=== PATIENT | female | born 1990 | race Caucasian/White ===

== ENCOUNTER 2020-06-19 09:20 | Inpatient (IN) | payer MEDICAID, OTHER ==
[2020-06-19] VITALS (43 sets, daily range): BP systolic 108–171; BP diastolic 56–93
[~2020-06-19] VITALS: Ht 167.7 cm; Wt 127.4 kg
--- NOTE | 2020-06-19 09:10 | NUR ---
CORNELIUS JONES presented to unit via AMBULATORY from OFFICE, with c/o [facility] DIALATION. CORNELIUS JONES weighed, gowned, voided, and to bed. EFHM and TOCO applied, VS taken. CORNELIUS JONES oriented to bed controls, call light, TV, heat, and A/C controls.
[~2020-06-19 09:20] MED LIST: ACHYD1T PO; AZIT500T2 PO; CITA40TA19 PO; IBP800T PO; NITR100C3 PO; OMEP-10 PO; ONDAN4ODT PO; PREN1TAB39 PO
[2020-06-19] MEDS ORDERED: AMPICILLIN FOR IV USE 2,000 MG in WATER (STERILE) FOR INJECTION 14.8 ML IV SCH (09:27)
[2020-06-19] MEDS ORDERED: D5 LR IV SOLUTION 1,000 ML IV ONE (09:30)
[2020-06-19] MEDS ORDERED: D5 LR IV SOLUTION 1,000 ML IV SCH ×2 (09:30→11:30)
[2020-06-19 10:09] LABS: BASOPHILS % (AUTO) 0 % (0-10); EOSINOPHILS % (AUTO) 0 % (0-10); HEMATOCRIT 26 % (35-52); LYMPHOCYTES # (AUTO) 1.7 10^3/uL (1.0-4.0); LYMPHOCYTES % (AUTO) 17 % (12-44); MEAN CORPUSCULAR HEMOGLOBIN 24 pg (25-34); MEAN CORPUSCULAR HGB CONC 31 g/dL (32-36); MEAN CORPUSCULAR VOLUME 78 fL (80-99); MEAN PLATELET VOLUME 10.7 fL (9.0-12.2); MONOCYTES # (AUTO) 0.6 10^3/uL (0.0-1.0); MONOCYTES % (AUTO) 6 % (0-12); NEUTROPHILS # (AUTO) 7.8 10^3/uL (1.8-7.8); NEUTROPHILS % (AUTO) 77 % (42-75); PLATELET COUNT 205 10^3/uL (130-400); WHITE BLOOD COUNT 10.1 10^3/uL (4.3-11.0)
[2020-06-19 10:29] LABS: ALANINE AMINOTRANSFERASE 11 U/L (0-55); ALBUMIN 3.1 GM/DL (3.2-4.5); ALKALINE PHOSPHATASE 90 U/L (40-136); BILIRUBIN,TOTAL 0.2 MG/DL (0.1-1.0); BUN/CREATININE RATIO 7; CARBON DIOXIDE 20 MMOL/L (21-32); CHLORIDE 107 MMOL/L (98-107); CREATININE SERUM 0.57 MG/DL (0.60-1.30); GFR ESTIMATED > 60; GLUCOSE 128 MG/DL (70-105); POTASSIUM 3.5 MMOL/L (3.6-5.0); SODIUM 137 MMOL/L (135-145); TOTAL PROTEIN 6.4 GM/DL (6.4-8.2)
[2020-06-19] MEDS ORDERED: OXYTOCIN PRE-MIX DRIP 500 ML IV SCH ×2 (11:30→16:30)
[2020-06-19] MEDS ORDERED: fentaNYL 2 mcg/ml BUPIVA 0.125 100 ML ONE (11:32)
--- NOTE | 2020-06-19 11:36 | History & Physical ---
History and Physical Date Seen by Provider: Jun 19, 2020 Time Seen by Provider: 11:33 this patient is a 29-year-old 5 para 1. A- 3 white female who was seen in my clinic on this date. The blood pressure was elevated she is complaining o f contractions and pressure. Her cervix was found be dilated to 4 cm and 90 percent effaced. She has a history of a very rapid delivery with her first. patient was samantha every 2-3 minutes on NST. She was sent to labor and delivery for management. Her history is significant for gestational diabetes that is diet controlled. She denies rupture membranes or bleeding. GBS culture was obtained 2 days ago and that result is not available Allergies are none Medications are vitamins Medical social and surgical histories are per the antepartum record HEENT exam is normal Neck is supple no lymphadenopathy no thyromegaly Abdomen is gravid soft nontender nondistended Extremities show no clubbing or cyanosis. There is no Homans sign. Pelvic exam shows a cervix 4 cm dilated 90 percent effaced -1 station vertex presentation with intact membranes Laboratory Tests Test 06/19/20 09:45 Range/Units White Blood Count 10.1 4.3-11.0 10^3/uL Red Blood Count 3.30 L 3.80-5.11 10^6/uL Hemoglobin 8.0 L 11.5-16.0 g/dL Hematocrit 26 L 35-52 % Mean Corpuscular Volume 78 L 80-99 fL Mean Corpuscular Hemoglobin 24 L 25-34 pg Mean Corpuscular Hemoglobin Concent 31 L 32-36 g/dL Red Cell Distribution Width 15.9 H 10.0-14.5 % Platelet Count 205 130-400 10^3/uL Mean Platelet Volume 10.7 9.0-12.2 fL Immature Granulocyte % (Auto) 1 % Neutrophils (%) (Auto) 77 H 42-75 % Lymphocytes (%) (Auto) 17 12-44 % Monocytes (%) (Auto) 6 0-12 % Eosinophils (%) (Auto) 0 0-10 % Basophils (%) (Auto) 0 0-10 % Neutrophils # (Auto) 7.8 1.8-7.8 10^3/uL Lymphocytes # (Auto) 1.7 1.0-4.0 10^3/uL Monocytes # (Auto) 0.6 0.0-1.0 10^3/uL Eosinophils # (Auto) 0.0 0.0-0.3 10^3/uL Basophils # (Auto) 0.0 0.0-0.1 10^3/uL Immature Granulocyte # (Auto) 0.1 0.0-0.1 10^3/uL Urine Protein 16 H 6-12 MG/DL Urine Creatinine 40 30-125 MG/DL Urine Protein/Creatinine Ratio 0.40 Sodium Level 137 135-145 MMOL/L Potassium Level 3.5 L 3.6-5.0 MMOL/L Chloride Level 107 98-107 MMOL/L Carbon Dioxide Level 20 L 21-32 MMOL/L Anion Gap 10 5-14 MMOL/L Blood Urea Nitrogen 4 L 7-18 MG/DL Creatinine 0.57 L 0.60-1.30 MG/DL Estimat Glomerular Filtration Rate > 60 BUN/Creatinine Ratio 7 Glucose Level 128 H 70-105 MG/DL Uric Acid 4.0 2.6-7.2 MG/DL Calcium Level 9.0 8.5-10.1 MG/DL Corrected Calcium 9.7 8.5-10.1 MG/DL Total Bilirubin 0.2 0.1-1.0 MG/DL Aspartate Amino Transf (AST/SGOT) 11 5-34 U/L Alanine Aminotransferase (ALT/SGPT) 11 0-55 U/L Alkaline Phosphatase 90 40-136 U/L Lactate Dehydrogenase 137 125-220 U/L Total Protein 6.4 6.4-8.2 GM/DL Albumin 3.1 L 3.2-4.5 GM/DL Laboratory Tests 06/19/20 09:45 Urine protein creatinine ratio was elevated at 0.4 Patient has a history of elevated blood pressure Assessment and plan 35 week gestation with labor and with overt preeclampsia. Patient is admitted now started on prophylactic penicillin for GBS. We anticipate vaginal delivery. Patient is diabetic and her glucose level will be monitored patient will be allowed an epidural if desired 35 weeks with labor and preeclampsia and gestational diabetes Allergies and Home Medications Allergies Coded Allergies: No Known Drug Allergies (Unverified , 06/24/11) Home Medications Citalopram Hydrobromide 40 Mg Tablet, 1 EACH PO DAILY, (Reported) Hydrocodone Bit/Acetaminophen 1 Tab Tablet, 1-2 TAB PO NEEDED, (Reported) Ibuprofen 800 Mg Tab, 800 MG PO Q6H, (Reported) Omeprazole 20 Mg Capsule.dr, 20 MG PO BID, (Reported) Ondansetron Hcl 4 Mg Tab, 8 MG PO Q4H Prescribed by: MORENA SIMPSON on 06/24/11 1600 Vits W-Ca,Fe,Fa(<1MG) 1 Each Tablet, 1 EACH PO DAILY, (Reported) Patient Home Medication List Home Medication List Reviewed: Yes ANTONETTE BARBER MD Jun 19, 2020 11:36
[2020-06-19] MEDS ORDERED: BUPIVACAINE 0.25% 30 ML (SENSORCAINE) VIAL ONE (12:11)
[2020-06-19] MEDS ORDERED: fentaNYL INJECTION 100 MCG/2 ML AMP ONE (12:11)
--- NOTE | 2020-06-19 12:14 | NUR ---
1214 Ernie ANGELO CRNA here for epidural placement. Procedure explained, consent reviewed and signed by anesthesia. Questions answered to patient's satisfaction. Time out taken to verify correct patient/procedure. 1217 Patient up to side of bed, assisted into sitting position. 1220 Betadine prep done x3 and sterile drape applied. 1221 Local done, see anesthesia record. 1225 Test dose given, see anesthesia record for drug and dosage. Epidural catheter secured in place. Epidural placement complete. 1229 Assisted back into bed, monitors adjusted. Epidural dosed, see anesthesia record. Epidural infusing @12cc/hr stated per pump. Patient tolerated procedure well.
[2020-06-19] MEDS ORDERED: EPIDURAL (fentaNYL 2 MCG/ML BUPIVA 0.125%)100 ML BAG EPI PRN (12:15)
[2020-06-19] MEDS ORDERED: LACTATED RINGERS 1,000 ML IV ONE ×2 (12:15)
[2020-06-19] MEDS ORDERED: ONDANSETRON 4 MG/2 ML (SDV) Z0FRAN IV PRN (12:15)
[2020-06-19] MEDS ORDERED: NALOXONE 0.4 MG/ML 1 ML (NARCAN) VIAL IV PRN (12:15)
[2020-06-19] MEDS ORDERED: fentaNYL INJECTION 100 MCG/2 ML AMP INJ ONE (12:15)
[2020-06-19] MEDS ORDERED: AMPICILLIN FOR IV USE 1,000 MG in WATER (STERILE) FOR INJECTION 7.4 ML IV SCH (13:30)
[2020-06-19] MEDS ORDERED: DOCU-143 PO (15:09)
[2020-06-19] MEDS ORDERED: OXYC1TAB87 PO (15:09)
[2020-06-19] MEDS ORDERED: IBUP-1780 PO (15:09)
--- NOTE | 2020-06-19 15:10 | Discharge Inst-Surgical ---
Discharge Inst-Surgical Depart Medication/Instructions New, Converted or Re-Newed RX: RX on Chart Consults/Follow Up Patient Instructions: as directed Orders & Referrals Follow Up Appt: Call to make follow up appt. for patient in 4 weeks. Activity Per routine post vaginal delivery instructions. Please call in RX to patient pharmacy. Diet as tolerated Patient may shower or tub bathe as desired. Activity Activity as Tolerated: No Diet Discharge Diet: No Restrictions ANTONETTE BARBER MD Jun 19, 2020 15:10
[2020-06-19] MEDS ORDERED: LIDOCAINE/EPI 2% 1:200,00 (XYLOCAINE) 10 ML VIAL ONE (15:22)
[2020-06-19] MEDS ORDERED: TETANUS,DIPTH,PERTUSS P/F (BOOSTRIX) 0.5 ML VIAL IM ONE (16:30)
[2020-06-19] MEDS ORDERED: BENZOCAINE/MENTHOL (DERMOPLAST) 60 ML CAN TP PRN (16:30)
[2020-06-19] MEDS ORDERED: ONDANSETRON 4 MG/2 ML (SDV) Z0FRAN IVP PRN (16:30)
[2020-06-19] MEDS ORDERED: MEASLES,MUMPS,RUBELLA 1 EA INJ SC ONE (16:30)
[2020-06-19] MEDS ORDERED: oxyCODONE/APAP 5/325MG (PERCOCET 5) TABLET PO PRN (16:30)
[2020-06-19] MEDS: KETOROLAC 30 MG/ML VIAL IVP SCH (18:38)
[2020-06-19] MEDS ORDERED: DOCUSATE SODIUM 100 MG (COLACE) CAP PO SCH (21:00)
--- NOTE | 2020-06-19 23:53 | OPERATIVE REPORT ---
DATE OF SERVICE: 06/19/2020 DELIVERY NOTE The patient delivered by spontaneous vaginal delivery at 35 and 3/7 weeks gestation, a viable male infant with Apgars of 7 and 8 at 1 and 5 minutes respectively, weight 5 pounds and 14 ounces, cord blood gas pH of 7.23, time was 1547. The was delivered over an intact perineum under epidural analgesia. The infant was bulb suctioned on delivery of the head and again on completion of delivery. The umbilical cord when pulseless was doubly clamped, the father cut the cord, the baby was passed transiently to mom's abdomen. Dr. Hare was on hand at the time of delivery and fairly shortly took the baby to the warmer for evaluation and resuscitation. The placenta delivered fairly quickly spontaneously [place]. It was a circumvallate placenta with a battledore or umbilical cord insertion. Placenta was sent to pathology for permanent section secondary to the premature labor at 35 weeks gestation with PIH and preeclampsia and gestational diabetes. The cervix, vagina, rectum, and perineum were examined and found intact, except for some very mild superficial right and left anterior labia minora superficial abrasions. Those areas were hemostatic and did not require repair. Sponge and needle counts were correct on completion of the delivery and post-delivery inspection. Blood loss was around 150 mL. The patient tolerated the delivery well and remained in the LDR for recovery. The baby was under the care of Dr. Hare and Dr. Hare was already contemplating transfer to NICU because of increased oxygen need, and respiratory issues of prematurity. Job ID: [id number] DocumentID: [id number] Dictated Date: 06/19/2020 16:04:40 Php Programmer Date: 06/19/2020 23:52:18 Dictated By: ANTONETTE BARBER MD MTDD
[2020-06-20] MEDS: KETOROLAC 30 MG/ML VIAL IVP SCH (00:30)
[2020-06-20] MEDS: IBUPROFEN 800 MG (MOTRIN) TAB PO SCH ×2 (06:27→11:49)
--- NOTE | 2020-06-20 07:15 | NUR ---
report received from WINIFRED Valentin. care assumed of pt.
--- NOTE | 2020-06-20 07:30 | NUR ---
lab called r/t +KARLEY child.
--- NOTE | 2020-06-20 07:39 | NUR ---
Maxine, nursing logging crew supervisor, called to verify lab notified RN's of +COVID result.
--- NOTE | 2020-06-20 07:54 | NUR ---
Nicho Nazario MANAGER PERSONAL, was notified of mother's +COVID result. result faxed.
--- NOTE | 2020-06-20 08:12 | NUR ---
called to check on pt's status. update given on +COVID result.
[2020-06-20 08:53] VITALS: BP 130/78
--- NOTE | 2020-06-20 08:53 | NUR ---
initial shift assessment completed, see interventions for further. pt informed of +COVID results, instructed to quarantine upon dismissal.
--- NOTE | 2020-06-20 09:53 | NUR ---
here. dismissal orders received.
--- NOTE | 2020-06-20 10:15 | Progress Note ---
Standard Progress Note Progress Notes/Assess & Plan Date Seen by a Provider: Jun 20, 2020 Time Seen by a Provider: 10:13 Progress/Assessment & Plan This patient is without complaint. She is ambulating, voiding, tolerating oral intake well and has good pain control. Her baby has been transferred to [facility] and patient reports that her baby is doing well. Patient is aware that she tested positive for the COVID-19 virus and remains completely asymptomatic Vital Signs Date Time Temp Pulse Resp B/P (MAP) Pulse Ox O2 Delivery O2 Flow Rate FiO2 06/20/20 08:53 36.4 73 18 130/78 (95) 100 Room Air 06/19/20 22:10 36.5 74 18 136/82 (100) 100 Room Air 06/19/20 19:26 36.4 90 18 132/84 (100) Room Air 06/19/20 19:11 90 18 156/82 (106) Room Air 06/19/20 18:56 80 18 150/77 (101) Room Air 06/19/20 18:41 81 18 156/82 (106) Room Air 06/19/20 18:26 36.5 82 18 146/88 (107) Room Air 06/19/20 18:11 89 18 152/81 (104) Room Air 06/19/20 17:56 98 18 139/81 (100) Room Air 06/19/20 17:41 36.4 71 18 140/77 (98) Room Air 06/19/20 17:26 71 18 147/81 (103) Room Air 06/19/20 17:11 69 18 158/83 (108) Room Air 06/19/20 16:56 74 18 154/84 (107) Room Air 06/19/20 16:41 81 18 153/81 (105) Room Air 06/19/20 16:26 77 18 144/78 (100) Room Air 06/19/20 16:11 73 18 136/74 (94) Room Air 06/19/20 16:08 36.5 06/19/20 15:56 87 18 136/63 (87) Room Air 06/19/20 15:42 36.0 90 18 133/75 (94) 100 Room Air 06/19/20 15:32 36.2 06/19/20 15:26 67 18 131/76 (94) 99 Room Air 06/19/20 14:56 74 18 118/66 (83) 99 Room Air 06/19/20 14:42 76 18 136/83 (100) 99 Room Air 06/19/20 14:27 79 18 129/73 (91) 100 Room Air 06/19/20 14:13 60 18 122/67 (85) 99 Room Air 06/19/20 13:57 65 18 127/80 (96) 98 Room Air 06/19/20 13:45 35.9 06/19/20 13:40 68 18 100 Room Air 06/19/20 13:22 64 18 127/68 (87) 95 Room Air 06/19/20 13:17 81 18 121/70 (87) 100 Room Air 06/19/20 13:12 79 18 131/84 (100) 98 Room Air 06/19/20 13:07 83 18 129/80 (96) Room Air 06/19/20 13:03 72 18 133/78 (96) Room Air 06/19/20 12:57 71 18 139/61 (87) Room Air 06/19/20 12:54 75 18 132/59 (83) 98 Room Air 06/19/20 12:51 80 18 108/57 (74) 100 Room Air 06/19/20 12:48 78 18 134/78 (96) Room Air 06/19/20 12:45 81 18 130/76 (94) 100 Room Air 06/19/20 12:42 72 18 128/71 (90) Room Air 06/19/20 12:40 85 18 135/69 (91) 100 Room Air 06/19/20 12:36 96 18 127/56 (79) 99 Room Air 06/19/20 12:33 36.5 88 18 133/76 (95) Room Air 06/19/20 12:30 78 18 158/76 (103) 99 Room Air 06/19/20 12:26 82 18 153/85 (107) Room Air 06/19/20 12:23 82 18 164/87 (112) 99 Room Air 06/19/20 12:20 78 18 160/89 (112) Room Air 06/19/20 12:18 81 18 171/93 (119) Room Air I & O 06/20/20 07:00 Intake Total 500 ml Balance 500 ml Vital signs are stable. Patient is afebrile. Physical exam is deferred due to the patient's COVID-19 status - patient's abdomen is benign per nurse report as are her extremities Assessment and plan day #1 status post spontaneous vaginal delivery doing well. Blood pressures are normalizing and will be followed up in clinic. Plan will be for discharge home with follow-up in clinic, patient is aware that she must observe strict precautions due to her COVID-19 status Final Diagnosis 35-week spontaneous vaginal delivery ANTONETTE BARBER MD Jun 20, 2020 10:15
--- NOTE | 2020-06-20 10:57 | Anesthesia-Regional Post-Op ---
Regional Patient Condition Mental Status: Alert, Oriented x3 Circulation: Same as Pre-Op Headache: Absent Sensation: Full Recovery Motor Block: Absent Post Op Complications Complications None Follow Up Care/Instructions Patient Instructions None needed. Anesthesia/Patient Condition Patient is doing well, no complaints, stable vital signs, no apparent adverse anesthesia problems. No complications reported per nursing. JOHANA GAO CRNA Jun 20, 2020 10:57
--- NOTE | 2020-06-20 11:35 | NUR ---
dismissal instructions given, verbalizes understanding. reviewed follow up medications, dosage and administration schedule. signature page signed, placed on chart.
--- NOTE | 2020-06-20 11:55 | NUR ---
Motrin and Colace Rx called into [facility] in [place], [place] per pt's request.
--- NOTE | 2020-06-20 12:15 | NUR ---
pt ambulated to private vehicle with this RN and WINIFRED Winslow @ side. pt stable with no sx's of distress noted.
== END 2020-06-20 12:15 | disposition home or self-care (01) | DRG 805 ==
LOC: WSo 09:20 → LDRP 09:22 → WSo 15:47 → LDRP 19:40
PROVIDERS: ADMIT Obstetrics & Gynecology; ATTEND Obstetrics & Gynecology
PROC: 10E0XZZ Delivery of Products of Conception, External Approach (ICD-10-PCS; principal; 2020-06-19)
DX: O60.14X0 Preterm labor third trimester with preterm delivery third trimester, not applicable or unspecified (principal); U07.1 COVID-19; Z37.0 Single live birth; O98.52 Other viral diseases complicating childbirth; Z3A.35 35 weeks gestation of pregnancy; O14.94 Unspecified pre-eclampsia, complicating childbirth; O24.429 Gestational diabetes mellitus in childbirth, unspecified control; O13.4 Gestational [pregnancy-induced] hypertension without significant proteinuria, complicating childbirth; O71.89 Other specified obstetric trauma
CPT/HCPCS: 36415; 80053; 82570; 82962; 83615; 84156; 84550; 85025; 87635